=== PATIENT | female | born 1990 | race Caucasian/White ===

== ENCOUNTER 2023-10-06 16:45 | Emergency (ER) | payer MEDICARE, OTHER, MEDICAID, SELFPAY ==
[2023-10-06 17:05] VITALS: BP 111/61; PULSE 78; RESP 15; TEMP 36.6; O2SAT 99
--- NOTE | 2023-10-06 18:17 | ED.GENADULT ---
HPI - General Adult General Chief complaint: Neck Pain/Injury Stated complaint: neck pain Time Seen by Provider: 10/06/23 17:42 Source: patient Mode of arrival: ambulatory Limitations: no limitations History of Present Illness HPI narrative: The 33-year-old female who presents to the ED with chief complaint of neck pain for the past 2 days. Reports that she feels she has slept on it wrong the past couple of nights. She reports some popping in the neck and is worsened with certain range of motions. Denies any fall or trauma to the neck. Endorses radiating pain into the upper neck, left shoulder and mid back. Denies fevers, chills, chest pain, shortness of breath, numbness, weakness. Related Data Allergies Allergy/AdvReac Type Severity Reaction Status Date / Time latex AdvReac Hives Verified 10/06/23 17:15 Review of Systems Review of Systems: All systems as dictated in HPI Exam Narrative: GENERAL: Well-appearing, well-nourished, and in no acute distress. HEAD: Normocephalic, atraumatic. EYES: PERRLA and EOMI. ENT: Nares clear, no rhinorrhea or epistaxis. Mucous membranes moist. Oropharynx without tonsillar hypertrophy exudate or other lesions. NECK: Supple. No adenopathy or masses. CHEST: No respiratory distress. Clear to auscultation. No wheezes rales or rhonchi HEART: Regular rate and rhythm. No murmur heard. Normal peripheral pulses. ABDOMEN: Soft, nontender, nondistended, normal active bowel sounds. MSK: No midline spinal tenderness throughout. full range of motion of bilateral shoulders. Cervical range of motion slightly limited due to pain. Mild tenderness noted throughout the trapezius distribution of the left neck, shoulder 5/5 strength and sensation in the bilateral upper extremities ambulatory without difficulty SKIN: Warm, dry, no rash. NEURO: Alert and oriented x4. No focal deficits. PSYCH: Normal mood and affect. Course Vital Signs Vital signs: Vital Signs Temperature 97.8 F 10/06/23 17:05 Pulse Rate 78 10/06/23 17:05 Respiratory Rate 15 10/06/23 17:05 Blood Pressure 111/61 10/06/23 17:05 Pulse Oximetry 99 10/06/23 17:05 Oxygen Delivery Room Air 10/06/23 17:05 Temperature 98.2 F 10/06/23 18:46 Pulse Rate 77 10/06/23 18:46 Respiratory Rate 16 10/06/23 18:46 Blood Pressure 118/96 H 10/06/23 18:46 Pulse Oximetry 100 10/06/23 18:46 Oxygen Delivery Room Air 10/06/23 17:05 Medical Decision Making MDM Narrative Medical decision making narrative: This is a 33-year-old female who presents to the ED with chief complaint of neck pain after possibly sleeping on it wrong. Vitals are normal. Exam is remarkable for muscular tenderness. No neurologic deficit or other red flag signs for back pain today. No trauma. No need for further imaging today. She was given Toradol shot and muscle relaxer with decent relief. Rx for the above given as well. Pt will be discharged in stable condition. Return precautions given and supportive measures discussed. Pt is understanding and agreeable with plan for discharge and follow-up with PCP. Vital Signs Vital Signs: Vital Signs Temperature 97.8 F 10/06/23 17:05 Pulse Rate 78 10/06/23 17:05 Respiratory Rate 15 10/06/23 17:05 Blood Pressure 111/61 10/06/23 17:05 Pulse Oximetry 99 10/06/23 17:05 Oxygen Delivery Room Air 10/06/23 17:05 Temperature 98.2 F 10/06/23 18:46 Pulse Rate 77 10/06/23 18:46 Respiratory Rate 16 10/06/23 18:46 Blood Pressure 118/96 H 10/06/23 18:46 Pulse Oximetry 100 10/06/23 18:46 Oxygen Delivery Room Air 10/06/23 17:05 Discharge Plan Discharge Clinical Impression: Strain of neck muscle Patient Disposition: Home, Self-Care Condition: Stable Instructions: Antibiotic Form Additional Instructions: your exam today shows muscle strain of the left side of the neck. Please take muscle relaxer and NSAIDs for r
[2023-10-06] MEDS: ORPHENADRINE CITRATE 100 MG TABLET.ER PO (18:43)
[2023-10-06] MEDS: KETOROLAC 30 MG/ML VIAL (*BKC) IM (18:43)
[2023-10-06 18:46] VITALS: BP 118/96; PULSE 77; RESP 16; TEMP 36.8; O2SAT 100
--- NOTE | 2023-10-06 18:51 | PC.NURSE ---
Hafsa at [facility] made aware that patient is ready to be picked up. All of Hafsa's questions about patient's visit answered.
== END 2023-10-06 18:55 | disposition home or self-care (01) ==
PROVIDERS: Emergency Provider Physician Assistant; PCP Family Medicine
DX: S16.1XXA Strain of muscle, fascia and tendon at neck level, initial encounter (principal); X58.XXXA Exposure to other specified factors, initial encounter
CPT/HCPCS: 96372; 99283; A9270; J1885

== ENCOUNTER 2023-10-14 10:26 | Outpatient (CLI) | payer MEDICARE, MEDICAID, SELFPAY ==
--- NOTE | ~2023-10-14 | XR_ITS ---
EXAMINATION: XR chest 2V 10/14/2023 10:57 INDICATION: Positive TB test PROCEDURE: 2 view chest COMPARISON: 12/31/2012 FINDINGS: The lungs are clear. The cardiomediastinal silhouette is within normal limits. There are no pleural effusions. There is no pneumothorax suspected. There are cholecystectomy clips. IMPRESSION: 1: NO ACUTE CARDIOPULMONARY DISEASE. Reviewed, dictated and finalized at location [facility].
== END 2023-10-14 10:27 | disposition home or self-care (01) ==
PROVIDERS: PCP Family Medicine
DX: R76.12 Nonspecific reaction to cell mediated immunity measurement of gamma interferon antigen response without active tuberculosis (principal)
CPT/HCPCS: 71046

== ENCOUNTER 2023-10-22 09:17 | Outpatient (CLI) | payer MEDICARE, MEDICAID, SELFPAY ==
--- NOTE | ~2023-10-22 | XR_ITS ---
Clinical Indication: TB screening PA and lateral views of the chest: Comparison: 10/14/2023 Findings: The lungs are clear, without evidence of focal consolidation or pleural effusion. Cardiome diastinal silhouette is within normal limits. Bones and soft tissues are unremarkable. Impression: Normal chest. Reviewed, dictated and finalized at [facility]. Impression: Normal chest.
== END 2023-10-22 09:18 | disposition home or self-care (01) ==
LOC: ANHIMG 09:34
DX: R76.12 Nonspecific reaction to cell mediated immunity measurement of gamma interferon antigen response without active tuberculosis (principal)
CPT/HCPCS: 71046